=== PATIENT | male | born 1940 | race Caucasian/White ===

== ENCOUNTER 2020-10-13 15:50 | Inpatient (IN) | payer MEDICARE, MEDICAID ==
[~2020-10-13] VITALS: Ht 165.1 cm; Wt 50.0 kg
--- NOTE | 2020-10-13 16:08 | ED.ADGEN ---
General Adult EDM: Chief Complaint: MECHANICAL FALL HPI: HPI: Patient is a 80 year old male who arrives via EMS complaining of left hip and proximal thigh pain sustained from a fall 2 days previously. Patient reportedly was ambulating and reached for a chair rail when he missed and fell to the ground. Patient landed on his left side and has since had left hip and pelvis pain. Patient states he had x-rays performed shortly after his fall which were interpreted as negative. Despite this the patient has had continued pain since the fall. The patient states he has considerable pain with any attempted ambulation. He denies any prodromal symptoms. He further denies any head or neck injury. He further denies any injury or pain otherwise. He is awake, alert and nontoxic-appearing. Review of Systems: Review of Systems: Constitutional: Denies fever or chills. [] Eyes: Denies change in visual acuity. [] HENT: Denies nasal congestion or sore throat. [] Respiratory: Denies cough or shortness of breath. [] Cardiovascular: Denies chest pain or edema. [] GI: Denies abdominal pain, nausea, vomiting, bloody stools or diarrhea. [] : Denies dysuria. [] Musculoskeletal: Left hip pain. Denies back pain. [] Integument: Denies rash. [] Neurologic: Denies headache, focal weakness or sensory changes. [] Endocrine: Denies polyuria or polydipsia. [] Lymphatic: Denies swollen glands. [] Psychiatric: Denies depression or anxiety. [] Current Medications: Current Medications Medications (Trade) Dose Ordered Sig/Valeria Start Time Stop Time Status Last Admin Dose Admin Morphine Sulfate (Morphine Sulfate) 2 mg PRN Q2HR PRN 10/13/20 17:15 10/14/20 17:14 Ondansetron HCl (Zofran) 4 mg PRN Q8HRS PRN 10/13/20 17:15 10/14/20 17:14 Allergies: Allergies: Allergies Coded Allergies Type Severity Reaction Last Updated Verified tetracycline Allergy Unknown 10/13/20 Yes Physical Exam: PE: Constitutional: Well developed, well nourished, no acute distress, non-toxic appearance. [] HENT: Normocephalic, atraumatic, bilateral external ears normal, oropharynx moist, no oral exudates, nose normal. [] Eyes: PERRLA, EOMI, conjunctiva normal, no discharge. [] Neck: Normal range of motion, no tenderness, supple, no stridor. [] Cardiovascular:Heart rate regular rhythm, no murmur [] Lungs & Thorax: Bilateral breath sounds clear to auscultation [] Abdomen: Bowel sounds normal, soft, no tenderness, no masses, no pulsatile masses. [] Skin: Warm, dry, no erythema, no rash. [] Back: No tenderness, no CVA tenderness. [] Extremities: Patient has tenderness of the left hip when palpated with limited range of motion.. No cyanosis, no clubbing, no edema. [] Neurologic: Alert and oriented X 3, normal motor function, normal sensory function, no focal deficits noted. [] Psychologic: Affect normal, judgement normal, mood normal. [] Current Patient Data: Labs: Laboratory Tests Test 10/13/20 17:00 White Blood Count 8.1 x10^3/uL (4.0-11.0) Red Blood Count 3.65 x10^6/uL (4.30-5.70) L Hemoglobin 13.1 g/dL (13.0-17.5) Hematocrit 37.3 % (39.0-53.0) L Mean Corpuscular Volume 102 fL (79-100) H Mean Corpuscular Hemoglobin 36 pg (25-35) H Mean Corpuscular Hemoglobin Concent 35 g/dL (31-37) Red Cell Distribution Width 12.2 % (11.5-14.5) Platelet Count 134 x10^3/uL (140-400) L Sodium Level 139 mmol/L (136-145) Potassium Level 4.6 mmol/L (3.5-5.1) Chloride Level 103 mmol/L (98-107) Carbon Dioxide Level 28 mmol/L (21-32) Anion Gap 8 (6-14) Blood Urea Nitrogen 27 mg/dL (8-26) H Creatinine 1.2 mg/dL (0.7-1.3) Estimated GFR (Cockcroft-Gault) 58.3 Glucose Level 102 mg/dL (70-99) H Calcium Level 9.1 mg/dL (8.5-10.1) Laboratory Tests 10/13/20 17:00 Laboratory Tests 10/13/20 17:00 Vital Signs: Vital Signs Date Time Temp Pulse Resp B/P (MAP) Pulse Ox O2 Delivery O2 Flow Rate FiO2 10/13/20 16:03 98.3 80 16 96/76 (83) 98 Room Air 98.3 EKG: EKG: [] Heart Score: Risk Factors: Risk Factors: DM, Current or recent (<one month) smoker, HTN, HLP, family history of CAD, obesity. Risk Scores: Score 0 - 3: 2.5% MACE over next 6 weeks - Discharge Home Score 4 - 6: 20.3% MACE over next 6 weeks - Admit for Clinical Observation Score 7 - 10: 72.7% MACE over next 6 weeks - Early Invasive Strategies Radiology/Procedures: Radiology/Procedures: [] Impression: [address] [id number] IMAGING REPORT Signed PATIENT: SADIE RICE ACCOUNT: [id number] : 1940 LOCATION: ER AGE: 80 SEX: M EXAM STATUS: PRE ER ORD. PHYSICIAN: CHRIS SANCHEZ DO REASON: Trauma PROCEDURE: HIP LEFT 2V WITH PELVIS XR BILATERAL HIP (WITH OR WITHOUT PELVIS) LEFT 2 VIEWS 10/13/2020 4:07 PM INDICATION: Trauma COMPARISON: None available. TECHNIQUE: AP view of the pelvis and 2 dedicated views the left hip are provided. FINDINGS/ IMPRESSION: 1. There is an intertrochanteric fracture of the left hip without significant displacement or angulation. Superior and inferior pubic rami are intact. Pubic symphysis is well aligned. Minor vascular calcifications are identified. Left hip joint space is preserved. Sacroiliac joints are well aligned. Electronically signed by: Claudia Harrington MD (10/13/2020 4:29 PM) [id number] DICTATED and SIGNED BY: CLAUDIA HARRINGTON MD DATE: 10/13/20 [id number] [id number] IMAGING REPORT Signed PATIENT: SADIE RICE ACCOUNT: [id number] : 1940 LOCATION: ER AGE: 80 SEX: M EXAM STATUS: PRE ER ORD. PHYSICIAN: CHRIS SANCHEZ DO REASON: trauma PROCEDURE: PORTABLE CHEST 1V EXAM: Chest, single view. HISTORY: Trauma. COMPARISON: None. FINDINGS: A frontal view of the chest obtained. There is emphysema with biapical pleural parenchymal scarring. There are calcified granulomas. There are healed rib fractures. IMPRESSION: Emphysema with biapical pleural parenchymal scarring. Electronically signed by: Aleja Watson MD (10/13/2020 4:25 PM) [id number] DICTATED and SIGNED BY: ALEJA WATSON MD DATE: 10/13/20 [id number] Course & Med Decision Making: Course & Med Decision Making Pertinent Labs and Imaging studies reviewed. (See chart for details) [] Dragon Disclaimer: Dragon Disclaimer: This electronic medical record was generated, in whole or in part, using a voice recognition dictation system. Departure Departure Impression: Primary Impression: Closed left hip fracture Disposition: ADMITTED INPT THIS HOSP Admitting Physician: GT Condition: STABLE CHRIS SANCHEZ DO Oct 13, 2020 16:08
--- NOTE | 2020-10-13 16:28 | RAD ---
EXAM: Chest, single view. HISTORY: Trauma. COMPARISON: None. FINDINGS: A frontal view of the chest obtained. There is emphysema with biapical pleural parenchymal scarring. There are calcified granulomas. There are healed rib fractures. IMPRESSION: Emphysema with biapical pleural parenchymal scarring. Electronically signed by: Aleja Vo MD (10/13/2020 4:25 PM) [id number]
--- NOTE | 2020-10-13 16:31 | RAD ---
XR BILATERAL HIP (WITH OR WITHOUT PELVIS) LEFT 2 VIEWS 10/13/2020 4:07 PM INDICATION: Trauma COMPARISON: None available. TECHNIQUE: AP view of the pelvis and 2 dedicated views the left hip are provided. FINDINGS/ IMPRESSION: 1. There is an intertrochanteric fracture of the left hip without significant displacement or angulat ion. Superior and inferior pubic rami are intact. Pubic symphysis is well aligned. Minor vascular coy cifications are identified. Left hip joint space is preserved. Sacroiliac joints are well aligned. Electronically signed by: Sana Meier MD (10/13/2020 4:29 PM) [id number]
[2020-10-13 17:09] LABS: HEMATOCRIT 37.3 % (39.0-53.0); HEMOGLOBIN 13.1 g/dL (13.0-17.5); RED BLOOD COUNT 3.65 x10^6/uL (4.30-5.70); RED CELL DISTRIBUTION WIDTH 12.2 % (11.5-14.5); WHITE BLOOD COUNT 8.1 x10^3/uL (4.0-11.0)
[2020-10-13] MEDS ORDERED: MORPHINE SULFATE 2 MG/ML VIAL. IV PRN (17:15)
[2020-10-13] MEDS ORDERED: ONDANSETRON PF 4 MG/2 ML VIAL. IV PRN (17:15)
[2020-10-13 17:17] LABS: CALCIUM 9.1 mg/dL (8.5-10.1); CREATININE 1.2 mg/dL (0.7-1.3); GFR 58.3; POTASSIUM 4.6 mmol/L (3.5-5.1)
--- NOTE | 2020-10-13 17:44 | PDOC1 ---
History and Physical Date of Admission Date of Admission DATE: 10/13/20 TIME: 17:06 Identification/Chief Complaint Chief Complaint Fall Source Source: Chart review, Patient History of Present Illness History of Present Illness Patient is 80-year-old male [facility] resident who presents to the ER with complaints of left leg pain for the past 2 days. Had mechanical fall from ground landing on his left side. He apparently missed the handrail as he was walking causing him to fall to the ground. He did complain of left hip pain since that time, and has been using a wheelchair for the past 2 days because be en unable to bear weight. He did have x-rays performed that were reportedly negative. Despite his negative results patient still complains of hip pain, worse with movement, so he came to the ER for further evaluation. He currently rates his pain as 6/10. Repeat x-ray in the ER today shows intertrochanteric fracture of left hip without significant displacement. Will admit patient for further medical management with orthopedic consult. Past Medical History Past Medical History COPD, hypertension, GERD, anxiety, osteoarthritis, laryngeal cancer Past Surgical History Past Surgical History Radical neck dissection Family History Family History Denies significant family history Social History Smoke: 1 pack per day ALCOHOL: none Drugs: None Current Medications Current Medications Current Medications Ondansetron HCl (Zofran) 4 mg PRN Q8HRS PRN IV NAUSEA/VOMITING; Start 10/13/20 at 17:15; Stop 10/14/20 at 17:14; Status UNV Morphine Sulfate (Morphine Sulfate) 2 mg PRN Q2HR PRN IV PAIN; Start 10/13/20 at 17:15; Stop 10/14/20 at 17:14; Status UNV Allergies Allergies: Coded Allergies: tetracycline (Verified Allergy, Unknown, 10/13/20) ROS Review of System GENERAL: No history of weight change, weakness or fevers. SKIN: No bruising, hair changes or rashes. EYES: No blurred, double or loss of vision. NOSE AND THROAT: No history of nosebleeds, hoarseness or sore throat. HEART: Denies chest pain, denies palpitations. LUNGS: Denies cough, hemoptysis, wheezing or shortness of breath. GASTROINTESTINAL: Denies nausea, vomiting, abdominal pain. GENITOURINARY: Denies dysuria, frequency, urgency, hematuria. NEUROLOGIC: Denies history of numbness, tingling, tremor or weakness. PSYCHIATRIC: Denies anxiety, denies depression. ENDOCRINE: No history of heat or cold intolerance, polyuria or polydipsia. EXTREMITIES: Left hip pain. Physical Exam Physical Exam General: Alert, Oriented X3, Cooperative, No acute distress HEENT: PERRLA, EOMI Lungs: Clear to auscultation, Normal air movement Heart: RRR, no murmurs Cardiovascular: S1, S2 Abdomen: Normal bowel sounds, Soft, No tenderness Extremities: Left hip tenderness. No clubbing, No cyanosis Skin: No rashes, No significant lesion Neuro: Normal speech, Normal tone, Sensation intact Psych/Mental Status: Mental status NL, Mood NL Vitals Vitals Vital Signs Date Time Temp Pulse Resp B/P (MAP) Pulse Ox O2 Delivery O2 Flow Rate FiO2 10/13/20 16:03 98.3 80 16 96/76 (83) 98 Room Air 98.3 Images Images XR BILATERAL HIP (WITH OR WITHOUT PELVIS) LEFT 2 VIEWS 10/13/2020 4:07 PM INDICATION: Trauma COMPARISON: None available. TECHNIQUE: AP view of the pelvis and 2 dedicated views the left hip are provided. FINDINGS/ IMPRESSION: 1. There is an intertrochanteric fracture of the left hip without significant displacement or angulation. Superior and inferior pubic rami are intact. Pubic symphysis is well aligned. Minor vascular calcifications are identified. Left hip joint space is preserved. Sacroiliac joints are well aligned. EXAM: Chest, single view. HISTORY: Trauma. COMPARISON: None. FINDINGS: A frontal view of the chest obtained. There is emphysema with biapical pleural parenchymal scarring. There are calcified granulomas. There are healed rib fractures. IMPRESSION: Emphysema with biapical pleural parenchymal scarring. VTE Prophylaxis Ordered VTE Prophylaxis Devices: No VTE Pharmacological Prophylaxi: Yes Assessment/Plan Assessment/Plan Nondisplaced closed left hip fracture Plan: We will admit patient with orthopedic consult Bedrest Pain management PT/OT Resume home medications FEN - Cardiac diet PPX - Heparin FULL CODE Dispo - inpatient for above Justifications for Admission Other Justification DENTON STERN MD Oct 13, 2020 17:44
[2020-10-13] MEDS ORDERED: IBUPROFEN 400 MG TABLET. PO PRN (18:00)
[2020-10-13] MEDS ORDERED: MAGNESIUM HYDROXIDE 2,400 MG/30 ML ORAL.SUSP. PO PRN (18:00)
[2020-10-13] MEDS ORDERED: BISACODYL 10 MG SUPP.RECT. PR PRN (18:00)
[2020-10-13] MEDS ORDERED: oxyCODONE/APAP 5/325 1 TAB TABLET PO PRN (18:00)
[2020-10-13] MEDS ORDERED: ONDANSETRON PF 4 MG/2 ML VIAL. IVP PRN (18:00)
[2020-10-13] MEDS ORDERED: HYDROcodone/APAP 5/325MG 1 TAB TABLET PO PRN (18:00)
--- NOTE | 2020-10-13 18:45 | NUR ---
The patient, SADIE RICE, 80 y/o, M admitted by DENTON STERN MD, was given written information regarding hospital policies, unit procedures and contact persons. Patient was transported from the ED to room 434 via gurney at 1845. RN performed a head to toe assessment at that time. Bed is in lowest locked position and the call light is within reach. Valuables were checked and left in the room with the patient. RN will continue to monitor the patient closely.
[2020-10-13 19:00] VITALS: BP 102/68
[2020-10-13] MEDS: ACETAMINOPHEN 325 MG TABLET. PO PRN (19:39)
[2020-10-13] MEDS: ZOLPIDEM 5 MG TABLET. PO PRN (21:17)
[2020-10-13] MEDS: ENOXAPARIN 40 MG/0.4 ML SYRINGE. SQ SCH (21:18)
[2020-10-13] MEDS ORDERED: LORA10CA PO (22:16)
[2020-10-13] MEDS ORDERED: MAGN24003 PO (22:16)
[2020-10-13] MEDS ORDERED: OMEP20CA16 PO (22:16)
[2020-10-13] MEDS ORDERED: BISA10SU55 RC (22:16)
[2020-10-13] MEDS ORDERED: GUAI600T47 PO (22:16)
[2020-10-13] MEDS ORDERED: MAGN400C PO (22:16)
[2020-10-13] MEDS ORDERED: TAMS0.4C97 PO (22:16)
[2020-10-13] MEDS ORDERED: POTA8CAP19 PO (22:16)
[2020-10-13] MEDS ORDERED: NA P133E2 RC (22:16)
[2020-10-13] MEDS ORDERED: LOPE2TAB27 PO (22:16)
[2020-10-13] MEDS ORDERED: METO50TA6 PO (22:16)
[2020-10-13 23:05] VITALS: BP 110/70
[2020-10-14 03:09] VITALS: BP 105/70
[2020-10-14 07:00] VITALS: BP 134/82
[2020-10-14 08:56] LABS: BASO % 1 % (0-3); EOS # 0.4 x10^3/uL (0.0-0.7); EOS % 5 % (0-3); HEMATOCRIT 38.9 % (39.0-53.0); HEMOGLOBIN 13.2 g/dL (13.0-17.5); LYMPH # 0.8 x10^3/uL (1.0-4.8); LYMPH % 12 % (24-48); MEAN CORPUSCULAR HEMOGLOBIN 35 pg (25-35); MEAN CORPUSCULAR HGB CONC 34 g/dL (31-37); MEAN CORPUSCULAR VOLUME 102 fL (79-100); MONO # 0.6 x10^3/uL (0.0-1.1); MONO % 9 % (0-9); NEUT % 73 % (31-73); PLATELET COUNT 144 x10^3/uL (140-400); RED CELL DISTRIBUTION WIDTH 12.4 % (11.5-14.5); WHITE BLOOD COUNT 6.9 x10^3/uL (4.0-11.0)
--- NOTE | 2020-10-14 09:04 | PDOC ---
PROGRESS NOTES Date of Service: DATE: 10/14/20 TIME: 09:00 Chief Complaint Chief Complaint Intertrochanteric fracture of the left hip without significant displacement or angulation. COPD Essential hypertension History of GERD History of anxiety History of osteoarthritis History of laryngeal cancer History of Present Illness History of Present Illness History of Present Illness Patient is 80-year-old male [facility] resident who presents to the ER with complaints of left leg pain for the past 2 days. Had mechanical fall f rom ground landing on his left side. He apparently missed the handrail as he was walking causing him to fall to the ground. He did complain of left hip pain since that time, and has been using a wheelchair for the past 2 days because been unable to bear weight. He did have x-rays performed that were reportedly negative. Despite his negative results patient still complains of hip pain, worse with movement, so he came to the ER for further evaluation. He currently rates his pain as 6/10. Repeat x-ray in the ER today shows intertrochanteric fracture of left hip without significant displacement. Will admit patient for further medical management with orthopedic consult. 10/14: NO acute events reported overnight, patient's concerns were addressed to the best of my abilities. Vitals Vitals Vital Signs Date Time Temp Pulse Resp B/P (MAP) Pulse Ox O2 Delivery O2 Flow Rate FiO2 10/14/20 07:00 98.4 78 16 134/82 (99) 93 Room Air 98.4 Physical Exam Physical Exam General: Alert, Cooperative HEENT: Atraumatic Lungs: Normal air movement Heart: Regular rate Abdomen: Soft Extremities: Other (There is tenderness of the left hip. There is pain with extremes of motion. The skin is intact. The extremity is not shortened nor externally rotated. Light touch sensation is intact at the foot and toes. Capillary refill and pulses are intact without evidence of ischemia. Slight dorsiflexion and plantarflexion are possible without evidence of sciatic nerve injury.) Skin: No breakdown, No significant lesion Neuro: Normal speech Labs LABS Laboratory Tests Test 10/13/20 16:54 10/13/20 17:00 SARS-CoV-2 Antigen (Rapid) Negative (NEGATIVE) White Blood Count 8.1 x10^3/uL (4.0-11.0) Red Blood Count 3.65 x10^6/uL (4.30-5.70) Hemoglobin 13.1 g/dL (13.0-17.5) Hematocrit 37.3 % (39.0-53.0) Mean Corpuscular Volume 102 fL (79-100) Mean Corpuscular Hemoglobin 36 pg (25-35) Mean Corpuscular Hemoglobin Concent 35 g/dL (31-37) Red Cell Distribution Width 12.2 % (11.5-14.5) Platelet Count 134 x10^3/uL (140-400) Sodium Level 139 mmol/L (136-145) Potassium Level 4.6 mmol/L (3.5-5.1) Chloride Level 103 mmol/L (98-107) Carbon Dioxide Level 28 mmol/L (21-32) Anion Gap 8 (6-14) Blood Urea Nitrogen 27 mg/dL (8-26) Creatinine 1.2 mg/dL (0.7-1.3) Estimated GFR (Cockcroft-Gault) 58.3 Glucose Level 102 mg/dL (70-99) Calcium Level 9.1 mg/dL (8.5-10.1) Assessment and Plan Assessmemt and Plan Problems Medical Problems: (1) Closed left hip fracture Status: Acute Comment Review of Relevant I have reviewed the following items manuela (where applicable) has been applied. Labs Laboratory Tests Test 10/13/20 16:54 10/13/20 17:00 SARS-CoV-2 Antigen (Rapid) Negative (NEGATIVE) White Blood Count 8.1 x10^3/uL (4.0-11.0) Red Blood Count 3.65 x10^6/uL (4.30-5.70) Hemoglobin 13.1 g/dL (13.0-17.5) Hematocrit 37.3 % (39.0-53.0) Mean Corpuscular Volume 102 fL (79-100) Mean Corpuscular Hemoglobin 36 pg (25-35) Mean Corpuscular Hemoglobin Concent 35 g/dL (31-37) Red Cell Distribution Width 12.2 % (11.5-14.5) Platelet Count 134 x10^3/uL (140-400) Sodium Level 139 mmol/L (136-145) Potassium Level 4.6 mmol/L (3.5-5.1) Chloride Level 103 mmol/L (98-107) Carbon Dioxide Level 28 mmol/L (21-32) Anion Gap 8 (6-14) Blood Urea Nitrogen 27 mg/dL (8-26) Creatinine 1.2 mg/dL (0.7-1.3) Estimated GFR (Cockcroft-Gault) 58.3 Glucose Level 102 mg/dL (70-99) Calcium Level 9.1 mg/dL (8.5-10.1) Laboratory Tests Test 10/13/20 16:54 10/13/20 17:00 SARS-CoV-2 Antigen (Rapid) Negative (NEGATIVE) White Blood Count 8.1 x10^3/uL (4.0-11.0) Red Blood Count 3.65 x10^6/uL (4.30-5.70) Hemoglobin 13.1 g/dL (13.0-17.5) Hematocrit 37.3 % (39.0-53.0) Mean Corpuscular Volume 102 fL (79-100) Mean Corpuscular Hemoglobin 36 pg (25-35) Mean Corpuscular Hemoglobin Concent 35 g/dL (31-37) Red Cell Distribution Width 12.2 % (11.5-14.5) Platelet Count 134 x10^3/uL (140-400) Sodium Level 139 mmol/L (136-145) Potassium Level 4.6 mmol/L (3.5-5.1) Chloride Level 103 mmol/L (98-107) Carbon Dioxide Level 28 mmol/L (21-32) Anion Gap 8 (6-14) Blood Urea Nitrogen 27 mg/dL (8-26) Creatinine 1.2 mg/dL (0.7-1.3) Estimated GFR (Cockcroft-Gault) 58.3 Glucose Level 102 mg/dL (70-99) Calcium Level 9.1 mg/dL (8.5-10.1) Medications Current Medications Ondansetron HCl (Zofran) 4 mg PRN Q8HRS PRN IV NAUSEA/VOMITING; Start 10/13/20 at 17:15; Stop 10/14/20 at 17:14 Morphine Sulfate (Morphine Sulfate) 2 mg PRN Q2HR PRN IV PAIN; Start 10/13/20 at 17:15; Stop 10/14/20 at 17:14 Ondansetron HCl (Zofran) 4 mg PRN Q6HRS PRN IVP NAUSEA/VOMITING; Start 10/13/20 at 18:00 Acetaminophen/ Hydrocodone Bitart (Lortab 5/325) 1 tab PRN Q4HRS PRN PO MODERATE PAIN; Start 10/13/20 at 18:00 Oxycodone/ Acetaminophen (Percocet 5/325) 1 tab PRN Q4HRS PRN PO SEVERE PAIN; Start 10/13/20 at 18:00 Acetaminophen (Tylenol) 650 mg PRN Q6HRS PRN PO Headaches, Temp > 101.5F Last administered on 10/13/20at 19:39; Start 10/13/20 at 18:00 Ibuprofen (Motrin) 400 mg PRN Q6HRS PRN PO MILD PAIN 1-3; Start 10/13/20 at 18:00 Magnesium Hydroxide (Milk Of Magnesia) 2,400 mg PRN Q12HR PRN PO CONSTIPATION; Start 10/13/20 at 18:00 Bisacodyl (Dulcolax Supp) 10 mg PRN DAILY PRN [place] CONSTIPATION; Start 10/13/20 at 18:00 Enoxaparin Sodium (Lovenox 40mg Syringe) 40 mg Q24H SQ Last administered on 10/13/20at 21:18; Start 10/13/20 at 21:00 Zolpidem Tartrate (Ambien) 5 mg PRN QHS PRN PO INSOMNIA Last administered on 10/13/20at 21:17; Start 10/13/20 at 21:00 Active Scripts Active Reported Potassium Chloride 8 Meq Capsule.er 10 Meq PO DAILY Omeprazole 20 Mg Capsule.dr 20 Mg PO HS Milk Of Magnesia (Magnesium Hydroxide) 2,400 Mg/10 Ml Oral.susp 1,200 Mg PO PRN DAILY Metoprolol Tartrate 50 Mg Tablet 1 Tab PO BID Hold med for SBP less than 110; Call physician for SBP > 170 or < 90 DBP > 100 or < 50; Pulse > 120 or < 55 Magnesium (Magnesium Oxide) 400 Mg Capsule 1 Cap PO TID 30 Days Loperamide (Loperamide Hcl) 2 Mg Tablet 2 Mg PO PRN Q6HRS PRN Mucinex (Guaifenesin) 600 Mg Tablet.er 1 Tab PO BID PRN 10 Days Flomax (Tamsulosin Hcl) 0.4 Mg Cap.er.24h 0.4 Mg PO DAILY Fleet Enema (Na Phos,M-B/Na Phos,Di-Ba) 133 Ml Enema 118 Ml RC PRN Claritin (Loratadine) 10 Mg Capsule 10 Mg PO DAILY Dulcolax (Bisacodyl) 10 Mg Supp.rect 10 Mg RC PRN DAILY PRN Insert 1 suppository rectally as needed for constipation if no results after 24 hours of administration of the milk of magnesia. Vitals/I & O Vital Sign - Last 24 Hours 10/13/20 10/13/20 10/13/20 10/13/20 16:03 16:17 16:37 17:01 Temp 98.3 98.3 Pulse 80 75 72 77 Resp 16 B/P (MAP) 96/76 (83) Pulse Ox 98 96 96 96 O2 Delivery Room Air 10/13/20 10/13/20 10/13/20 10/13/20 17:17 17:37 17:57 18:45 Pulse 69 72 75 Pulse Ox 95 95 95 O2 Delivery Room Air 10/13/20 10/13/20 10/14/20 10/14/20 19:00 23:05 03:09 07:00 Temp 97.5 97.4 98.1 98.4 97.5 97.4 98.1 98.4 Pulse 82 70 74 78 Resp 18 18 18 16 B/P (MAP) 102/68 (79) 110/70 (83) 105/70 (82) 134/82 (99) Pulse Ox 95 90 90 93 O2 Delivery Room Air Room Air Room Air Room Air Intake and Output 10/13/20 10/13/20 10/14/20 15:00 23:00 07:00 Intake Total 0 ml Balance 0 ml Justicifation of Admission Dx: Justifications for Admission: Justification of Admission Dx: Yes Fracture: Fracture LINUS PINEDA MD Oct 14, 2020 09:04
[2020-10-14 09:08] LABS: CALCIUM 9.3 mg/dL (8.5-10.1); CREATININE 1.2 mg/dL (0.7-1.3); GFR 58.3; POTASSIUM 4.2 mmol/L (3.5-5.1)
[2020-10-14 09:22] LABS: PROTHROMBIN TIME PATIENT 13.5 SEC (11.7-14.0)
--- NOTE | 2020-10-14 10:58 | PDOC2 ---
CONSULT Date of Consult Date of Consult DATE: 10/14/20 TIME: 10:56 Reason for Consult Reason for Consult: Left hip fracture Identification/Chief Complaint Chief Complaint Left hip pain after a fall a couple of days ago Source Source: Chart review, Patient History of Present Illness Reason for Visit: This 80-year-old man apparently fell a few days ago, used a wheelchair and had difficulty with weightbearing. He was seen in the emergency room last night where x-rays showed a fracture. The radiologist report called this an intertrochanteric fracture but on my review of the films there was questionable intertrochanteric extension. I have since ordered a CT scan which shows that it is a fracture of the greater trochanter without apparent intertrochanteric extension. Past Medical History Past Medical History COPD, hypertension, GERD, anxiety, osteoarthritis, laryngeal cancer Cardiovascular: HTN Pulmonary: COPD GI: GERD Heme/Onc: Cancer (laryngeal) Musculoskeletal: Osteoarthritis Social History 1 pack per day ALCOHOL: none Drugs: None Current Problem List Problem List Problems Medical Problems: (1) Closed left hip fracture Status: Acute Current Medications Current Medications Current Medications Ondansetron HCl (Zofran) 4 mg PRN Q8HRS PRN IV NAUSEA/VOMITING; Start 10/13/20 at 17:15; Stop 10/14/20 at 17:14 Morphine Sulfate (Morphine Sulfate) 2 mg PRN Q2HR PRN IV PAIN; Start 10/13/20 at 17:15; Stop 10/14/20 at 17:14 Ondansetron HCl (Zofran) 4 mg PRN Q6HRS PRN IVP NAUSEA/VOMITING; Start 10/13/20 at 18:00 Acetaminophen/ Hydrocodone Bitart (Lortab 5/325) 1 tab PRN Q4HRS PRN PO MODERATE PAIN; Start 10/13/20 at 18:00 Oxycodone/ Acetaminophen (Percocet 5/325) 1 tab PRN Q4HRS PRN PO SEVERE PAIN; Start 10/13/20 at 18:00 Acetaminophen (Tylenol) 650 mg PRN Q6HRS PRN PO Headaches, Temp > 101.5F Last administered on 10/13/20at 19:39; Start 10/13/20 at 18:00 Ibuprofen (Motrin) 400 mg PRN Q6HRS PRN PO MILD PAIN 1-3; Start 10/13/20 at 18:00 Magnesium Hydroxide (Milk Of Magnesia) 2,400 mg PRN Q12HR PRN PO CONSTIPATION; Start 10/13/20 at 18:00 Bisacodyl (Dulcolax Supp) 10 mg PRN DAILY PRN [place] CONSTIPATION; Start 10/13/20 at 18:00 Enoxaparin Sodium (Lovenox 40mg Syringe) 40 mg Q24H SQ Last administered on 10/13/20at 21:18; Start 10/13/20 at 21:00 Zolpidem Tartrate (Ambien) 5 mg PRN QHS PRN PO INSOMNIA Last administered on 10/13/20at 21:17; Start 10/13/20 at 21:00 Active Scripts Active Reported Potassium Chloride 8 Meq Capsule.er 10 Meq PO DAILY Omeprazole 20 Mg Capsule.dr 20 Mg PO HS Milk Of Magnesia (Magnesium Hydroxide) 2,400 Mg/10 Ml Oral.susp 1,200 Mg PO PRN DAILY Metoprolol Tartrate 50 Mg Tablet 1 Tab PO BID Hold med for SBP less than 110; Call physician for SBP > 170 or < 90 DBP > 100 or < 50; Pulse > 120 or < 55 Magnesium (Magnesium Oxide) 400 Mg Capsule 1 Cap PO TID 30 Days Loperamide (Loperamide Hcl) 2 Mg Tablet 2 Mg PO PRN Q6HRS PRN Mucinex (Guaifenesin) 600 Mg Tablet.er 1 Tab PO BID PRN 10 Days Flomax (Tamsulosin Hcl) 0.4 Mg Cap.er.24h 0.4 Mg PO DAILY Fleet Enema (Na Phos,M-B/Na Phos,Di-Ba) 133 Ml Enema 118 Ml RC PRN Claritin (Loratadine) 10 Mg Capsule 10 Mg PO DAILY Dulcolax (Bisacodyl) 10 Mg Supp.rect 10 Mg RC PRN DAILY PRN Insert 1 suppository rectally as needed for constipation if no results after 24 hours of administration of the milk of magnesia. Allergies Allergies: Coded Allergies: tetracycline (Verified Allergy, Unknown, 10/13/20) ROS Review of System GENERAL: No history of weight change, weakness or fevers. SKIN: No bruising, hair changes or rashes. EYES: No blurred, double or loss of vision. NOSE AND THROAT: No history of nosebleeds, hoarseness or sore throat. HEART: Denies chest pain, denies palpitations. LUNGS: Denies cough, hemoptysis, wheezing or shortness of breath. GASTROINTESTINAL: Denies nausea, vomiting, abdominal pain. GENITOURINARY: Denies dysuria, frequency, urgency, hematuria. NEUROLOGIC: Denies history of numbness, tingling, tremor or weakness. PSYCHIATRIC: Denies anxiety, denies depression. ENDOCRINE: No history of heat or cold intolerance, polyuria or polydipsia. EXTREMITIES: Left hip pain. Physical Exam General: Alert, Cooperative HEENT: Atraumatic Lungs: Normal air movement Heart: Regular rate Abdomen: Soft Extremities: Other (There is tenderness of the left hip. There is pain with extremes of motion. The skin is intact. The extremity is not shortened nor externally rotated. Light touch sensation is intact at the foot and toes. Ca pillary refill and pulses are intact without evidence of ischemia. Slight dorsiflexion and plantarflexion are possible without evidence of sciatic nerve injury.) Skin: No breakdown, No significant lesion Neuro: Normal speech Vitals VITALS Vital Signs Date Time Temp Pulse Resp B/P (MAP) Pulse Ox O2 Delivery O2 Flow Rate FiO2 10/14/20 07:00 98.4 78 16 134/82 (99) 93 Room Air 98.4 Labs Labs Laboratory Tests Test 10/13/20 16:54 10/13/20 17:00 10/14/20 08:24 SARS-CoV-2 Antigen (Rapid) Negative (NEGATIVE) White Blood Count 8.1 x10^3/uL (4.0-11.0) 6.9 x10^3/uL (4.0-11.0) Red Blood Count 3.65 x10^6/uL (4.30-5.70) 3.80 x10^6/uL (4.30-5.70) Hemoglobin 13.1 g/dL (13.0-17.5) 13.2 g/dL (13.0-17.5) Hematocrit 37.3 % (39.0-53.0) 38.9 % (39.0-53.0) Mean Corpuscular Volume 102 fL (79-100) 102 fL (79-100) Mean Corpuscular Hemoglobin 36 pg (25-35) 35 pg (25-35) Mean Corpuscular Hemoglobin Concent 35 g/dL (31-37) 34 g/dL (31-37) Red Cell Distribution Width 12.2 % (11.5-14.5) 12.4 % (11.5-14.5) Platelet Count 134 x10^3/uL (140-400) 144 x10^3/uL (140-400) Sodium Level 139 mmol/L (136-145) 140 mmol/L (136-145) Potassium Level 4.6 mmol/L (3.5-5.1) 4.2 mmol/L (3.5-5.1) Chloride Level 103 mmol/L (98-107) 103 mmol/L (98-107) Carbon Dioxide Level 28 mmol/L (21-32) 28 mmol/L (21-32) Anion Gap 8 (6-14) 9 (6-14) Blood Urea Nitrogen 27 mg/dL (8-26) 25 mg/dL (8-26) Creatinine 1.2 mg/dL (0.7-1.3) 1.2 mg/dL (0.7-1.3) Estimated GFR (Cockcroft-Gault) 58.3 58.3 Glucose Level 102 mg/dL (70-99) 99 mg/dL (70-99) Calcium Level 9.1 mg/dL (8.5-10.1) 9.3 mg/dL (8.5-10.1) Neutrophils (%) (Auto) 73 % (31-73) Lymphocytes (%) (Auto) 12 % (24-48) Monocytes (%) (Auto) 9 % (0-9) Eosinophils (%) (Auto) 5 % (0-3) Basophils (%) (Auto) 1 % (0-3) Neutrophils # (Auto) 5.0 x10^3/uL (1.8-7.7) Lymphocytes # (Auto) 0.8 x10^3/uL (1.0-4.8) Monocytes # (Auto) 0.6 x10^3/uL (0.0-1.1) Eosinophils # (Auto) 0.4 x10^3/uL (0.0-0.7) Basophils # (Auto) 0.0 x10^3/uL (0.0-0.2) Prothrombin Time 13.5 SEC (11.7-14.0) Prothromb Time International Ratio 1.1 (0.8-1.1) Activated Partial Thromboplast Time 41 SEC (24-38) Laboratory Tests Test 10/13/20 16:54 10/13/20 17:00 10/14/20 08:24 SARS-CoV-2 Antigen (Rapid) Negative (NEGATIVE) White Blood Count 8.1 x10^3/uL (4.0-11.0) 6.9 x10^3/uL (4.0-11.0) Red Blood Count 3.65 x10^6/uL (4.30-5.70) 3.80 x10^6/uL (4.30-5.70) Hemoglobin 13.1 g/dL (13.0-17.5) 13.2 g/dL (13.0-17.5) Hematocrit 37.3 % (39.0-53.0) 38.9 % (39.0-53.0) Mean Corpuscular Volume 102 fL (79-100) 102 fL (79-100) Mean Corpuscular Hemoglobin 36 pg (25-35) 35 pg (25-35) Mean Corpuscular Hemoglobin Concent 35 g/dL (31-37) 34 g/dL (31-37) Red Cell Distribution Width 12.2 % (11.5-14.5) 12.4 % (11.5-14.5) Platelet Count 134 x10^3/uL (140-400) 144 x10^3/uL (140-400) Sodium Level 139 mmol/L (136-145) 140 mmol/L (136-145) Potassium Level 4.6 mmol/L (3.5-5.1) 4.2 mmol/L (3.5-5.1) Chloride Level 103 mmol/L (98-107) 103 mmol/L (98-107) Carbon Dioxide Level 28 mmol/L (21-32) 28 mmol/L (21-32) Anion Gap 8 (6-14) 9 (6-14) Blood Urea Nitrogen 27 mg/dL (8-26) 25 mg/dL (8-26) Creatinine 1.2 mg/dL (0.7-1.3) 1.2 mg/dL (0.7-1.3) Estimated GFR (Cockcroft-Gault) 58.3 58.3 Glucose Level 102 mg/dL (70-99) 99 mg/dL (70-99) Calcium Level 9.1 mg/dL (8.5-10.1) 9.3 mg/dL (8.5-10.1) Neutrophils (%) (Auto) 73 % (31-73) Lymphocytes (%) (Auto) 12 % (24-48) Monocytes (%) (Auto) 9 % (0-9) Eosinophils (%) (Auto) 5 % (0-3) Basophils (%) (Auto) 1 % (0-3) Neutrophils # (Auto) 5.0 x10^3/uL (1.8-7.7) Lymphocytes # (Auto) 0.8 x10^3/uL (1.0-4.8) Monocytes # (Auto) 0.6 x10^3/uL (0.0-1.1) Eosinophils # (Auto) 0.4 x10^3/uL (0.0-0.7) Basophils # (Auto) 0.0 x10^3/uL (0.0-0.2) Prothrombin Time 13.5 SEC (11.7-14.0) Prothromb Time International Ratio 1.1 (0.8-1.1) Activated Partial Thromboplast Time 41 SEC (24-38) Images Images Report reviewed and images independently reviewed. I definitely see fracture at the greater trochanter with some extension into the intertrochanteric region but not a definitive intertroch pattern. Occult intertrochanteric extension is common with greater trochanter fractures so nondisplaced inotroch fracture is certainly likely. I will order a CT scan to confirm whether significant intertrochanteric extension exists. PATIENT: SADIE RICE ACCOUNT: [id number] : 1940 LOCATION: ER AGE: 80 SEX: M EXAM STATUS: PRE ER ORD. PHYSICIAN: CHRIS SANCHEZ DO REASON: Trauma PROCEDURE: HIP LEFT 2V WITH PELVIS XR BILATERAL HIP (WITH OR WITHOUT PELVIS) LEFT 2 VIEWS 10/13/2020 4:07 PM INDICATION: Trauma COMPARISON: None available. TECHNIQUE: AP view of the pelvis and 2 dedicated views the left hip are provided. FINDINGS/ IMPRESSION: 1. There is an intertrochanteric fracture of the left hip without significant displacement or angulation. Superior and inferior pubic rami are intact. Pubic symphysis is well aligned. Minor vascular calcifications are identified. Left hip joint space is preserved. Sacroiliac joints are well aligned. Electronically signed by: Claudia Harrington MD (10/13/2020 4:29 PM) [id number] DICTATED and SIGNED BY: CLAUDIA HARRINGTON MD DATE: 10/13/20 [id number] 0 Report reviewed and images independently reviewed of the CT scan. This appears to be isolated to the greater trochanter. I do not see any significant fracture line to the lesser trochanter, and therefore I would recommend nonoperative treatment for this injury. [facility] [address] [place] [address] IMAGING REPORT Signed PATIENT: SADIE RICE ACCOUNT: [id number] : 1940 LOCATION: [address] [place] [address] AGE: 80 SEX: M EXAM STATUS: ADM IN ORD. PHYSICIAN: DESTIN THOMSON MD REASON: evaluate left hip fracture PROCEDURE: CT PELVIS WO CONTRAST EXAM: Pelvis CT without contrast. HISTORY: Hip fracture. TECHNIQUE: Computed tomographic images of the pelvis were obtained without contrast. *One or more of the following individualized dose reduction techniques were utilized for this examination: 1. Automated exposure control. 2. Adjustment of the mA and/or kV according to patient size. 3. Use of iterative reconstruction technique. COMPARISON: Radiographs dated 10/13/2020. FINDINGS: There is a comminuted fracture involving the left greater trochanter. No fracture line extension to the inferior trochanter is seen. There is no hip dislocation. There is minimal marginal acetabular spurring and subchondral cyst formation. The pubis symphysis is intact. There is degenerative spurring and ankylosis involving the sacroiliac joints. There is grade 1 anterolisthesis of L4 on L5. There is a disc bulge with endplate osteophytosis and severe facet arthropathy at this level. This results in suspected severe foraminal and moderate central canal stenosis, partially excluded from the [id number]. At L5-S1, there is a disc bulge. There is severe right and mild left facet arthropathy. There is severe right greater than left foraminal stenosis. There is calcified atherosclerotic plaque involving the aorta and iliac bifurcation. There is no appendicitis. There is no bowel obstruction. There is no lymphadenopathy. There are vasectomy clips. IMPRESSION: 1. Comminuted left femoral greater trochanteric fracture. 2. Minimal bilateral hip osteoarthritis. 3. Degenerative change involving the lumbar spine, described in detail above. 4. 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 Electronically signed by: Aleja Watson MD (10/14/2020 11:40 AM) [id number] DICTATED and SIGNED BY: ALEJA WATSON MD DATE: 10/14/20 1136 Assessment/Plan Assessment/Plan Displaced fracture of greater trochanter of left femur, initial encounter for closed fracture Diagnosis Code S72.112A These fractures generally do well with nonoperative treatment. A walker is necessary, and the fracture usually heals uneventfully. He may weight-bear as tolerated with a walker. Office follow-up is recommended for follow-up x-rays in a few weeks. DVT prophylaxis with aspirin or similar low intensity prophylaxis is warranted. DESTIN THOMSON MD Oct 14, 2020 10:58
[2020-10-14 11:00] VITALS: BP 122/80
--- NOTE | 2020-10-14 11:46 | RAD ---
EXAM: Pelvis CT without contrast. HISTORY: Hip fracture. TECHNIQUE: Computed tomographic images of the pelvis were obtained without contrast. *One or more of the following individualized dose reduction techniques were utilized for this examina tion: 1. Automated exposure control. 2. Adjustment of the mA and/or kV according to patient size. 3. Use of iterative reconstruction technique. COMPARISON: Radiographs dated 10/13/2020. FINDINGS: There is a comminuted fracture involving the left greater trochanter. No fracture line exte nsion to the inferior trochanter is seen. There is no hip dislocation. There is minimal marginal acet abular spurring and subchondral cyst formation. The pubis symphysis is intact. There is degenerative spurring and ankylosis involving the sacroiliac joints. There is grade 1 anterolisthesis of L4 on L5. There is a disc bulge with endplate osteophytosis and s evere facet arthropathy at this level. This results in suspected severe foraminal and moderate centra l canal stenosis, partially excluded from the [id number]. At L5-S1, there is a disc bulge. There is severe right and mild left facet arthropathy. There is shelly re right greater than left foraminal stenosis. There is calcified atherosclerotic plaque involving the aorta and iliac bifurcation. There is no appe ndicitis. There is no bowel obstruction. There is no lymphadenopathy. There are vasectomy clips. IMPRESSION: 1. Comminuted left femoral greater trochanteric fracture. 2. Minimal bilateral hip osteoarthritis. 3. Degenerative change involving the lumbar spine, described in detail above. 4. 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 Electronically signed by: Aleja Vo MD (10/14/2020 11:40 AM) [id number]
[2020-10-14] MEDS: ACETAMINOPHEN 325 MG TABLET. PO PRN ×2 (12:23→17:17)
[2020-10-14 15:00] VITALS: BP 120/82
[2020-10-14 19:00] VITALS: BP 132/76
[2020-10-14] MEDS: ENOXAPARIN 40 MG/0.4 ML SYRINGE. SQ SCH (19:11)
[2020-10-14] MEDS: ZOLPIDEM 5 MG TABLET. PO PRN (19:11)
[2020-10-14 23:00] VITALS: BP 159/70
[2020-10-15 03:00] VITALS: BP 159/84
[2020-10-15 07:00] VITALS: BP 165/67
[2020-10-15] MEDS ORDERED: ONDANSETRON PF 4 MG/2 ML VIAL. IV PRN (07:00)
[2020-10-15] MEDS ORDERED: PROCHLORPERAZINE 10 MG/2 ML VIAL. IV PRN (07:00)
[2020-10-15] MEDS ORDERED: HYDROmorphone 2 MG/ML VIAL IV PRN (07:00)
[2020-10-15] MEDS ORDERED: IV RINGERS,LACTATED 1000ML 1,000 ML IV SCH (07:00)
[2020-10-15] MEDS ORDERED: LIDOCAINE 1% PF 2 ML VIAL. ID PRN (07:00)
[2020-10-15] MEDS ORDERED: fentaNYL PF VIAL 100 MCG/2 ML VIAL IV PRN ×2 (07:00)
[2020-10-15] MEDS ORDERED: MORPHINE SULFATE 2 MG/ML VIAL. IV PRN (07:00)
[2020-10-15] MEDS: ASPIRIN CHEWABLE 81 MG TABLET. PO SCH (08:55)
[2020-10-15] MEDS: ACETAMINOPHEN 325 MG TABLET. PO PRN ×2 (08:58→20:37)
[2020-10-15] MEDS ORDERED: [UNRECOGNIZED DRUG - REMARK] INT ART ONE (09:00)
[2020-10-15 09:07] LABS: CALCIUM 9.7 mg/dL (8.5-10.1); CREATININE 1.3 mg/dL (0.7-1.3); GFR 53.1; POTASSIUM 4.3 mmol/L (3.5-5.1)
[2020-10-15 11:06] VITALS: BP 97/62
[2020-10-15] MEDS ORDERED: ASPI-630 PO (13:50)
[2020-10-15] MEDS ORDERED: HYDR-2761 PO (13:50)
--- NOTE | 2020-10-15 13:51 | SNU/HH DC ---
DISCHARGE ORDERS DISCHARGE INFORMATION: DISCHARGE DATE: Oct 15, 2020 FINAL DIAGNOSIS Problems Medical Problems: (1) Closed left hip fracture Status: Acute (2) Displaced fracture of greater trochanter of left femur, initial encounter for closed fracture Status: Acute CONDITION ON DISCHARGE: Stable CODE STATUS: Code Status: Full [facility]: SNF STAY <30 DAYS: Yes POST DISCHARGE ORDERS: DIET AFTER DISCHARGE: Cardiac TREATMENT/EQUIPMENT ORDERS: Physical Therapy For: Evalulation/Treatment DISCHARGE MEDICATIONS: Home Meds Active Scripts Hydrocodone Bit/Acetaminophen (HYDROCODONE-APAP 5-325 ) 1 Tab Tablet, 1 TAB PO PRN Q4HRS PRN for MODERATE PAIN for 5 Days, #20 TAB Prov:LINUS PINEDA MD 10/15/20 Aspirin (ASPIRIN) 81 Mg Tab.chew, 81 MG PO DAILY for antiplatelet for 30 Days, #30 TAB.CHEW Prov:LINUS PINEDA MD 10/15/20 Reported Medications Potassium Chloride (POTASSIUM CHLORIDE) 8 Meq Capsule.er, 10 MEQ PO DAILY for HYPOKALEMIA , CAP 10/13/20 Omeprazole (OMEPRAZOLE) 20 Mg Capsule.dr, 20 MG PO HS for GERD, CAP 10/13/20 Magnesium Hydroxide (MILK OF MAGNESIA) 2,400 Mg/10 Ml Oral.susp, 1200 MG PO PRN DAILY for constipation , MISC 10/13/20 Metoprolol Tartrate (METOPROLOL TARTRATE) 50 Mg Tablet, 1 TAB PO BID for HTN, #60 TAB 5 Refills Hold med for SBP less than 110; Call physician for SBP > 170 or < 90 DBP > 100 or < 50; Pulse > 120 or < 55 10/13/20 Magnesium Oxide (MAGNESIUM) 400 Mg Capsule, 1 CAP PO TID for SUPPLEMENT for 30 Days, #90 CAP 0 Refills 10/13/20 Loperamide Hcl (LOPERAMIDE) 2 Mg Tablet, 2 MG PO PRN Q6HRS PRN for DIARRHEA, TAB 10/13/20 Guaifenesin (MUCINEX) 600 Mg Tablet.er, 1 TAB PO BID PRN for COUGH for 10 Days, #20 TAB 0 Refills 10/13/20 Tamsulosin Hcl (FLOMAX) 0.4 Mg Cap.er.24h, 0.4 MG PO DAILY for BPH , TAB 10/13/20 Na Phos,M-B/Na Phos,Di-Ba (FLEET ENEMA) 133 Ml Enema, 118 ML RC PRN for constipation , EACH 10/13/20 Loratadine (CLARITIN) 10 Mg Capsule, 10 MG PO DAILY for runny nose , CAP 10/13/20 Bisacodyl (DULCOLAX) 10 Mg Supp.rect, 10 MG RC PRN DAILY PRN for CONSTIPATION, SUPP.RECT 0 Refills Insert 1 suppository rectally as needed for constipation if no results after 24 hours of administration of the milk of dorothy. 10/13/20 LINUS PINEDA MD Oct 15, 2020 13:51
[2020-10-15 14:47] VITALS: BP 141/94
[2020-10-15 19:00] VITALS: BP 121/78
--- NOTE | 2020-10-15 19:15 | PDOC ---
PROGRESS NOTES Date of Service: DATE: 10/15/20 TIME: 19:07 Chief Complaint Chief Complaint Intertrochanteric fracture of the left hip without significant displacement or angulation. COPD Essential hypertension History of GERD History of anxiety History of osteoarthritis History of laryngeal cancer Plan Physical therapy today Patient does well he may be able to discharge in the a.m. Nonoperative management as per our orthopedic cardiology consultants Recommendations greatly appreciated DVT prophylaxis Lovenox History of Present Illness History of Present Illness History of Present Illness Patient is 80-year-old male [facility] resident who presents to the ER with complaints of left leg pain for the past 2 days. Had mechanical fall from ground landing on his left side. He apparently missed the handrail as he was walking causing him to fall to the ground. He did complain of left hip pain since that time, and has been using a wheelchair for the past 2 days because been unable to bear weight. He did have x-rays performed that were reportedly negative. Despite his negative results patient still complains of hip pain, worse with movement, so he came to the ER for further evaluation. He currently rates his pain as 6/10. Repeat x-ray in the ER today shows intertrochanteric fracture of left hip without significant displacement. Will admit patient for further medical management with orthopedic consult. 10/14: NO acute events reported overnight, patient's concerns were addressed to the best of my abilities. Vitals Vitals Vital Signs Date Time Temp Pulse Resp B/P (MAP) Pulse Ox O2 Delivery O2 Flow Rate FiO2 10/15/20 14:47 97.3 79 18 141/94 (110) 94 Room Air 97.3 Physical Exam Physical Exam General: Alert, Cooperative HEENT: Atraumatic Lungs: Normal air movement Heart: Regular rate Abdomen: Soft Extremities: Other (There is tenderness of the left hip. There is pain with extremes of motion. The skin is intact. The extremity is not shortened nor externally rotated. Light touch sensation is intact at the foot and toes. Capillary refill and pulses are intact without evidence of ischemia. Slight dorsiflexion and plantarflexion are possible without evidence of sciatic nerve injury.) Skin: No breakdown, No significant lesion Neuro: Normal speech General: Alert, Cooperative Heart: Regular rate Abdomen: Soft Extremities: Other (There is tenderness of the left hip. There is pain with extremes of motion. The skin is intact. The extremity is not shortened nor externally rotated. Light touch sensation is intact at the foot and toes. Capillary refill and pulses are intact without evidence of ischemia. Slight dorsiflexion and plantarflexion are possible without evidence of sciatic nerve injury.) Skin: No breakdown, No significant lesion Labs LABS Laboratory Tests Test 10/15/20 08:16 Sodium Level 139 mmol/L (136-145) Potassium Level 4.3 mmol/L (3.5-5.1) Chloride Level 101 mmol/L (98-107) Carbon Dioxide Level 26 mmol/L (21-32) Anion Gap 12 (6-14) Blood Urea Nitrogen 22 mg/dL (8-26) Creatinine 1.3 mg/dL (0.7-1.3) Estimated GFR (Cockcroft-Gault) 53.1 Glucose Level 119 mg/dL (70-99) Calcium Level 9.7 mg/dL (8.5-10.1) Review of Systems Review of Systems Review of systems pertinent as per HPI otherwise 14 point review of system is negative Assessment and Plan Assessmemt and Plan Problems Medical Problems: (1) Closed left hip fracture Status: Acute (2) Displaced fracture of greater trochanter of left femur, initial encounter for closed fracture Status: Acute Comment Review of Relevant I have reviewed the following items manuela (where applicable) has been applied. Labs Laboratory Tests Test 10/14/20 08:24 10/15/20 08:16 White Blood Count 6.9 x10^3/uL (4.0-11.0) Red Blood Count 3.80 x10^6/uL (4.30-5.70) Hemoglobin 13.2 g/dL (13.0-17.5) Hematocrit 38.9 % (39.0-53.0) Mean Corpuscular Volume 102 fL (79-100) Mean Corpuscular Hemoglobin 35 pg (25-35) Mean Corpuscular Hemoglobin Concent 34 g/dL (31-37) Red Cell Distribution Width 12.4 % (11.5-14.5) Platelet Count 144 x10^3/uL (140-400) Neutrophils (%) (Auto) 73 % (31-73) Lymphocytes (%) (Auto) 12 % (24-48) Monocytes (%) (Auto) 9 % (0-9) Eosinophils (%) (Auto) 5 % (0-3) Basophils (%) (Auto) 1 % (0-3) Neutrophils # (Auto) 5.0 x10^3/uL (1.8-7.7) Lymphocytes # (Auto) 0.8 x10^3/uL (1.0-4.8) Monocytes # (Auto) 0.6 x10^3/uL (0.0-1.1) Eosinophils # (Auto) 0.4 x10^3/uL (0.0-0.7) Basophils # (Auto) 0.0 x10^3/uL (0.0-0.2) Prothrombin Time 13.5 SEC (11.7-14.0) Prothromb Time International Ratio 1.1 (0.8-1.1) Activated Partial Thromboplast Time 41 SEC (24-38) Sodium Level 140 mmol/L (136-145) 139 mmol/L (136-145) Potassium Level 4.2 mmol/L (3.5-5.1) 4.3 mmol/L (3.5-5.1) Chloride Level 103 mmol/L (98-107) 101 mmol/L (98-107) Carbon Dioxide Level 28 mmol/L (21-32) 26 mmol/L (21-32) Anion Gap 9 (6-14) 12 (6-14) Blood Urea Nitrogen 25 mg/dL (8-26) 22 mg/dL (8-26) Creatinine 1.2 mg/dL (0.7-1.3) 1.3 mg/dL (0.7-1.3) Estimated GFR (Cockcroft-Gault) 58.3 53.1 Glucose Level 99 mg/dL (70-99) 119 mg/dL (70-99) Calcium Level 9.3 mg/dL (8.5-10.1) 9.7 mg/dL (8.5-10.1) Laboratory Tests Test 10/15/20 08:16 Sodium Level 139 mmol/L (136-145) Potassium Level 4.3 mmol/L (3.5-5.1) Chloride Level 101 mmol/L (98-107) Carbon Dioxide Level 26 mmol/L (21-32) Anion Gap 12 (6-14) Blood Urea Nitrogen 22 mg/dL (8-26) Creatinine 1.3 mg/dL (0.7-1.3) Estimated GFR (Cockcroft-Gault) 53.1 Glucose Level 119 mg/dL (70-99) Calcium Level 9.7 mg/dL (8.5-10.1) Medications Current Medications Ondansetron HCl (Zofran) 4 mg PRN Q8HRS PRN IV NAUSEA/VOMITING; Start 10/13/20 at 17:15; Stop 10/14/20 at 17:14; Status DC Morphine Sulfate (Morphine Sulfate) 2 mg PRN Q2HR PRN IV PAIN; Start 10/13/20 at 17:15; Stop 10/14/20 at 17:14; Status DC Ondansetron HCl (Zofran) 4 mg PRN Q6HRS PRN IVP NAUSEA/VOMITING; Start 10/13/20 at 18:00 Acetaminophen/ Hydrocodone Bitart (Lortab 5/325) 1 tab PRN Q4HRS PRN PO MODERATE PAIN; Start 10/13/20 at 18:00 Oxycodone/ Acetaminophen (Percocet 5/325) 1 tab PRN Q4HRS PRN PO SEVERE PAIN Last administered on 10/14/20at 19:11; Start 10/13/20 at 18:00 Acetaminophen (Tylenol) 650 mg PRN Q6HRS PRN PO Headaches, Temp > 101.5F Last administered on 10/15/20at 08:58; Start 10/13/20 at 18:00 Ibuprofen (Motrin) 400 mg PRN Q6HRS PRN PO MILD PAIN 1-3; Start 10/13/20 at 18:00 Magnesium Hydroxide (Milk Of Magnesia) 2,400 mg PRN Q12HR PRN PO CONSTIPATION Last administered on 10/15/20at 17:46; Start 10/13/20 at 18:00 Bisacodyl (Dulcolax Supp) 10 mg PRN DAILY PRN RI CONSTIPATION; Start 10/13/20 at 18:00 Enoxaparin Sodium (Lovenox 40mg Syringe) 40 mg Q24H SQ Last administered on 10/14/20at 19:11; Start 10/13/20 at 21:00 Zolpidem Tartrate (Ambien) 5 mg PRN QHS PRN PO INSOMNIA Last administered on 10/14/20at 19:11; Start 10/13/20 at 21:00 Ondansetron HCl (Zofran) 4 mg PRN Q6HRS PRN IV NAUSEA/VOMITING; Start 10/15/20 at 07:00; Stop 10/16/20 at 06:59 Fentanyl Citrate (Fentanyl 2ml Vial) 25 mcg PRN Q5MIN PRN IV MILD PAIN 1-3; Start 10/15/20 at 07:00; Stop 10/16/20 at 06:59 Fentanyl Citrate (Fentanyl 2ml Vial) 50 mcg PRN Q5MIN PRN IV MODERATE TO SEVERE PAIN; Start 10/15/20 at 07:00; Stop 10/16/20 at 06:59 Morphine Sulfate (Morphine Sulfate) 1 mg PRN Q10MIN PRN IV SEVERE PAIN 7-10; Start 10/15/20 at 07:00; Stop 10/16/20 at 06:59 Ringer's Solution 1,000 ml @ 30 mls/hr Q24H IV ; Start 10/15/20 at 07:00; Stop 10/15/20 at 18:59; Status DC Lidocaine HCl (Xylocaine-Mpf 1% 2ml Vial) 2 ml PRN 1X PRN ID PRIOR TO IV START; Start 10/15/20 at 07:00; Stop 10/16/20 at 06:59 Hydromorphone HCl (Dilaudid) 0.5 mg PRN Q10MIN PRN IV SEV PAIN, Second choice; Start 10/15/20 at 07:00; Stop 10/16/20 at 06:59 Prochlorperazine Edisylate (Compazine) 5 mg PACU PRN PRN IV NAUSEA, MRX1; Start 10/15/20 at 07:00; Stop 10/16/20 at 06:59 Aspirin (Aspirin Chewable) 81 mg DAILY PO Last administered on 10/15/20at 08:55; Start 10/15/20 at 09:00; Stop 11/14/20 at 08:59 Ropivacaine 53.3 ml/Epinephrine HCl 0.6 mg/ Morphine Sulfate 5 mg/Sodium Chloride 100 ml @ 100 mls/hr 1X ONCE INT ART ; Start 10/15/20 at 09:00; Stop 10/15/20 at 09:59; Status DC Active Scripts Active Hydrocodone-Apap 5-325 (Hydrocodone Bit/Acetaminophen) 1 Tab Tablet 1 Tab PO PRN Q4HRS PRN 5 Days Aspirin 81 Mg Tab.chew 81 Mg PO DAILY 30 Days Reported Potassium Chloride 8 Meq Capsule.er 10 Meq PO DAILY Omeprazole 20 Mg Capsule.dr 20 Mg PO HS Milk Of Magnesia (Magnesium Hydroxide) 2,400 Mg/10 Ml Oral.susp 1,200 Mg PO PRN DAILY Metoprolol Tartrate 50 Mg Tablet 1 Tab PO BID Hold med for SBP less than 110; Call physician for SBP > 170 or < 90 DBP > 100 or < 50; Pulse > 120 or < 55 Magnesium (Magnesium Oxide) 400 Mg Capsule 1 Cap PO TID 30 Days Loperamide (Loperamide Hcl) 2 Mg Tablet 2 Mg PO PRN Q6HRS PRN Mucinex (Guaifenesin) 600 Mg Tablet.er 1 Tab PO BID PRN 10 Days Flomax (Tamsulosin Hcl) 0.4 Mg Cap.er.24h 0.4 Mg PO DAILY Fleet Enema (Na Phos,M-B/Na Phos,Di-Ba) 133 Ml Enema 118 Ml RC PRN Claritin (Loratadine) 10 Mg Capsule 10 Mg PO DAILY Dulcolax (Bisacodyl) 10 Mg Supp.rect 10 Mg RC PRN DAILY PRN Insert 1 suppository rectally as needed for constipation if no results after 24 hours of administration of the milk of magnesia. Vitals/I & O Vital Sign - Last 24 Hours 10/14/20 10/14/20 10/14/20 10/14/20 19:11 20:00 20:15 23:00 Temp 98.1 98.1 Pulse 76 Resp 18 B/P (MAP) 159/70 (99) Pulse Ox 93 O2 Delivery Room Air Room Air Room Air Room Air 10/15/20 10/15/20 10/15/20 10/15/20 03:00 07:00 08:00 11:06 Temp 98.1 98.3 98.1 98.1 98.3 98.1 Pulse 66 71 76 Resp 18 18 18 B/P (MAP) 159/84 (109) 165/67 (99) 97/62 (74) Pulse Ox 92 93 95 O2 Delivery Room Air Room Air Room Air Room Air 10/15/20 14:47 Temp 97.3 97.3 Pulse 79 Resp 18 B/P (MAP) 141/94 (110) Pulse Ox 94 O2 Delivery Room Air Intake and Output0 10/14/20 10/14/20 10/15/20 15:00 23:00 07:00 Intake Total 400 ml 100 ml Output Total 250 ml 200 ml Balance 150 ml -100 ml Justicifation of Admission Dx: Justifications for Admission: Justification of Admission Dx: Yes Fracture: Fracture LINUS PINEDA MD Oct 15, 2020 19:15
[2020-10-15] MEDS: ENOXAPARIN 40 MG/0.4 ML SYRINGE. SQ SCH (20:38)
[2020-10-15] MEDS: ZOLPIDEM 5 MG TABLET. PO PRN (20:38)
[2020-10-15 23:00] VITALS: BP 118/75
[2020-10-16 03:00] VITALS: BP 113/67
[2020-10-16 07:00] VITALS: BP 156/63
[2020-10-16 07:34] LABS: CALCIUM 9.1 mg/dL (8.5-10.1); CREATININE 1.2 mg/dL (0.7-1.3); GFR 58.3; POTASSIUM 4.1 mmol/L (3.5-5.1)
[2020-10-16] MEDS: ACETAMINOPHEN 325 MG TABLET. PO PRN (08:49)
[2020-10-16] MEDS: ASPIRIN CHEWABLE 81 MG TABLET. PO SCH (08:49)
[2020-10-16] MEDS ORDERED: METOPROLOL TART IMMED RELEASE 50 MG TABLET. PO SCH (09:00)
[2020-10-16 11:00] VITALS: BP 121/70
--- NOTE | 2020-10-16 14:41 | PDOC ---
PROGRESS NOTES Date of Service DATE: 10/16/20 TIME: 14:40 Subjective Subjective Hip is feeling better. He has been up with a walker. Objective Vital Signs Vital Signs Date Time Temp Pulse Resp B/P (MAP) Pulse Ox O2 Delivery O2 Flow Rate FiO2 10/16/20 11:00 97.5 64 19 121/70 (87) 96 Room Air 97.5 Physical Exam Leg lengths remain equal. Labs Laboratory Tests Test 10/15/20 08:16 10/16/20 06:59 Sodium Level 139 mmol/L (136-145) 138 mmol/L (136-145) Potassium Level 4.3 mmol/L (3.5-5.1) 4.1 mmol/L (3.5-5.1) Chloride Level 101 mmol/L (98-107) 104 mmol/L (98-107) Carbon Dioxide Level 26 mmol/L (21-32) 27 mmol/L (21-32) Anion Gap 12 (6-14) 7 (6-14) Blood Urea Nitrogen 22 mg/dL (8-26) 18 mg/dL (8-26) Creatinine 1.3 mg/dL (0.7-1.3) 1.2 mg/dL (0.7-1.3) Estimated GFR (Cockcroft-Gault) 53.1 58.3 Glucose Level 119 mg/dL (70-99) 95 mg/dL (70-99) Calcium Level 9.7 mg/dL (8.5-10.1) 9.1 mg/dL (8.5-10.1) Laboratory Tests Test 10/16/20 06:59 Sodium Level 138 mmol/L (136-145) Potassium Level 4.1 mmol/L (3.5-5.1) Chloride Level 104 mmol/L (98-107) Carbon Dioxide Level 27 mmol/L (21-32) Anion Gap 7 (6-14) Blood Urea Nitrogen 18 mg/dL (8-26) Creatinine 1.2 mg/dL (0.7-1.3) Estimated GFR (Cockcroft-Gault) 58.3 Glucose Level 95 mg/dL (70-99) Calcium Level 9.1 mg/dL (8.5-10.1) Assessment Assessment Greater trochanter fracture Plan Plan of Care No surgery planned. Mobilize with a walker. Discharge planning. Office follow-up. Justicifation of Admission Dx: Justifications for Admission: Justification of Admission Dx: Yes Fracture: Fracture DESTIN THOMSON MD Oct 16, 2020 14:41
[2020-10-16 15:00] VITALS: BP 116/75
--- NOTE | 2020-11-10 13:10 | PDOC3 ---
Discharge Summary Visit Information Date of Admission: Oct 13, 2020 Date of Discharge: Oct 16, 2020 Admitting Diagnosis Comment: Intertrochanteric fracture of the left hip without significant displacement or angulation. COPD Essential hypertension History of GERD History of anxiety History of osteoarthritis History of laryngeal cancer Final Diagnosis Problems Medical Problems: (1) Closed left hip fracture Status: Acute (2) Displaced fracture of greater trochanter of left femur, initial encounter for closed fracture Status: Acute Intertrochanteric fracture of the left hip without significant displacement or angulation. COPD Essential hypertension History of GERD History of anxiety History of osteoarthritis History of laryngeal cancer Brief Hospital Course Allergies Allergies Coded Allergies Type Severity Reaction Last Updated Verified tetracycline Allergy Unknown 10/13/20 Yes Brief Hospital Course History of Present Illness Patient is 80-year-old male [facility] resident who presents to the ER with complaints of left leg pain for the past 2 days. Had mechanical fall from ground landing on his left side. He apparently missed the handrail as he was walking causing him to fall to the ground. He did complain of left hip pain since that time, and has been using a wheelchair for the past 2 days because been unable to bear weight. He did have x-rays performed that were reportedly negative. Despite his negative results patient still complains of hip pain, worse with movement, so he came to the ER for further evaluation. He currently rates his pain as 6/10. Repeat x-ray in the ER today shows intertrochanteric fracture of left hip without significant displacement. Will admit patient for further medical management with orthopedic consult. 10/14: NO acute events reported overnight, patient's concerns were addressed to the best of my abilities. 10/15: No acute events reported overnight, the patient continued to do well and he will be transition to a long term facility. Signs and symptoms of concern discussed prior to discharge all concerns addressed to the best my abilities General: Alert, Cooperative HEENT: Atraumatic Lungs: Normal air movement Heart: Regular rate Abdomen: Soft Assessment Assessment [facility] [address] [place] [address] IMAGING REPORT Signed PATIENT: SADIE RICE ACCOUNT: [id number] : 1940 LOCATION: [address] [place] [address] AGE: 80 SEX: M EXAM STATUS: ADM IN ORD. PHYSICIAN: DESTIN THOMSON MD REASON: evaluate left hip fracture PROCEDURE: CT PELVIS WO CONTRAST EXAM: Pelvis CT without contrast. HISTORY: Hip fracture. TECHNIQUE: Computed tomographic images of the pelvis were obtained without contrast. *One or more of the following individualized dose reduction techniques were utilized for this examination: 1. Automated exposure control. 2. Adjustment of the mA and/or kV according to patient size. 3. Use of iterative reconstruction technique. COMPARISON: Radiographs dated 10/13/2020. FINDINGS: There is a comminuted fracture involving the left greater trochanter. No fracture line extension to the inferior trochanter is seen. There is no hip dislocation. There is minimal marginal acetabular spurring and subchondral cyst formation. The pubis symphysis is intact. There is degenerative spurring and ankylosis involving the sacroiliac joints. There is grade 1 anterolisthesis of L4 on L5. There is a disc bulge with endplate osteophytosis and severe facet arthropathy at this level. This results in suspected severe foraminal and moderate central canal stenosis, partially excluded from the [id number]. At L5-S1, there is a disc bulge. There is severe right and mild left facet arthropathy. There is severe right greater than left foraminal stenosis. There is calcified atherosclerotic plaque involving the aorta and iliac bifurcation. There is no appendicitis. There is no bowel obstruction. There is no lymphadenopathy. There are vasectomy clips. IMPRESSION: 1. Comminuted left femoral greater trochanteric fracture. 2. Minimal bilateral hip osteoarthritis. 3. Degenerative change involving the lumbar spine, described in detail above. 4. 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 Electronically signed by: Aleja Vo MD (10/14/2020 11:40 AM) [id number] Discharge Information Condition at Discharge: Improved Follow Up: Weeks Disposition/Orders: D/C to Home, D/C to Another Facility Scheduled Aspirin (Aspirin) 81 Mg Tab.chew, 81 MG PO DAILY for antiplatelet for 30 Days, #30 Prescribed by: LINUS PINEDA MD on 10/15/20 1420 Loratadine (Claritin) 10 Mg Capsule, 10 MG PO DAILY for runny nose , (Reported) Entered as Reported by: CHAU LARSEN on 10/13/202215 Last Action: Reviewed on 10/14/20307 by CHAU LARSEN Magnesium Hydroxide (Milk Of Magnesia) 2,400 Mg/10 Ml Oral.susp, 1,200 MG PO PRN DAILY for constipation , (Reported) Entered as Reported by: CHAU LARSEN on 10/13/202215 Last Action: Reviewed on 10/14/20307 by CHAU LARSEN Magnesium Oxide (Magnesium) 400 Mg Capsule, 1 CAP PO TID for SUPPLEMENT for 30 Days, #90 Ref 0 (Reported) Entered as Reported by: CHAU LARSEN on 10/13/202215 Last Action: Reviewed on 10/14/20307 by CHAU LARSEN Metoprolol Tartrate (Metoprolol Tartrate) 50 Mg Tablet, 1 TAB PO BID for HTN, #60 Ref 5 (Reported) Hold med for SBP less than 110; Call physician for SBP > 170 or < 90 DBP > 100 or < 50; Pulse > 120 or < 55 Entered as Reported by: CHAU LARSEN on 10/13/202215 Last Action: Continued on 10/16/20832 by GUNJAN BADILLO Phos,M-B/Dinora Phos,Di-Ba (Fleet Enema) 133 Ml Enema, 118 ML RC PRN for con stipation , (Reported) Entered as Reported by: CHAU LARSEN on 10/13/202215 Last Action: Reviewed on 10/14/20307 by CHAU LARSEN Omeprazole (Omeprazole) 20 Mg Capsule.dr, 20 MG PO HS for GERD, (Reported) Entered as Reported by: CHAU LARSEN on 10/13/202215 Last Action: Reviewed on 10/14/20307 by CHAU LARSEN Potassium Chloride (Potassium Chloride) 8 Meq Capsule.er, 10 MEQ PO DAILY for HYPOKALEMIA , (Reported) Entered as Reported by: CHAU LARSEN on 10/13/202215 Last Action: Reviewed on 10/14/20307 by CHAU LARSEN Tamsulosin Hcl (Flomax) 0.4 Mg Cap.er.24h, 0.4 MG PO DAILY for BPH , (Reported) Entered as Reported by: CHAU LARSEN on 10/13/202215 Last Action: Reviewed on 10/14/20307 by CHAU LARSEN Scheduled PRN Bisacodyl (Dulcolax) 10 Mg Supp.rect, 10 MG RC PRN DAILY PRN for CONSTIPATION, Ref 0 (Reported) Insert 1 suppository rectally as needed for constipation if no results after 24 hours of administration of the milk of magnesia. Entered as Reported by: CHAU LARSEN on 10/13/202215 Last Action: Reviewed on 10/14/20307 by CHAU LARSEN Guaifenesin (Mucinex) 600 Mg Tablet.er, 1 TAB PO BID PRN for COUGH for 10 Days, #20 Ref 0 (Reported) Entered as Reported by: CHAU LARSEN on 10/13/202215 Last Action: Reviewed on 10/14/20307 by CHAU LARSEN Hydrocodone Bit/Acetaminophen (Hydrocodone-Apap 5-325 ) 1 Tab Tablet, 1 TAB PO PRN Q4HRS PRN for MODERATE PAIN for 5 Days, #20 Prescribed by: LINUS PINEDA MD on 10/15/20 1350 Loperamide Hcl (Loperamide) 2 Mg Tablet, 2 MG PO PRN Q6HRS PRN for DIARRHEA, (Reported) Entered as Reported by: CHAU LARSEN on 10/13/202215 Last Action: Reviewed on 10/14/20307 by CHAU LARSEN Justicifation of Admission Dx: Justifications for Admission: Justification of Admission Dx: Yes Fracture: Fracture LINUS PINEDA MD Nov 10, 2020 13:10
== END 2020-10-16 15:10 | DRG 536 ==
LOC: ER 15:50 → 4 NORTH 16:55
PROVIDERS: ADMIT Family Medicine; ATTEND Family Medicine
DX: S72.112A Displaced fracture of greater trochanter of left femur, initial encounter for closed fracture (principal); S72.142A Displaced intertrochanteric fracture of left femur, initial encounter for closed fracture; F17.210 Nicotine dependence, cigarettes, uncomplicated; I10 Essential (primary) hypertension; J43.9 Emphysema, unspecified; Y93.01 Activity, walking, marching and hiking; Z85.21 Personal history of malignant neoplasm of larynx; F41.9 Anxiety disorder, unspecified; K21.9 Gastro-esophageal reflux disease without esophagitis; M19.90 Unspecified osteoarthritis, unspecified site; Z88.8 Allergy status to other drugs, medicaments and biological substances; W18.39XA Other fall on same level, initial encounter; Y93.89 Activity, other specified; Y92.89 Other specified places as the place of occurrence of the external cause; Y99.8 Other external cause status; Z20.822 Contact with and (suspected) exposure to COVID-19
CPT/HCPCS: 36415; 71045; 72192; 73502; 80048; 82306; 85025; 85027; 85610; 85730; 87426; J1650; U0003; 97110-GP; 97116-GP; 97535-GO; 99285-25; G0378